=== PATIENT | female | born 1965 | race Caucasian/White ===

== ENCOUNTER 2017-11-11 06:47 | Emergency (ER) | payer OTHER ==
[2017-11-11 07:02] VITALS: RESP 16
--- NOTE | 2017-11-11 07:20 | ED PDOC ---
Arrival/HPI - General Chief Complaint: Cough, Cold, Congestion Time Seen by Provider: 11/11/17 07:16 Historian: Patient, Spouse, Caption Writer (spouse) EM Caveat: Language Barrier - History of Present Illness Narrative History of Present Illness (Text): 11/11/17 07:17 pt p/w + coughing, productive x 1 week, now productive with persistent coughing and nausea with occasional vomiting; pt + decr appetite, + tactile fever last night; no chills/sweats, no cp, mild sob, no palpitations, no abd pain, no numbness/tingling, no urinary/bowel changes, ? sick contact, no fall/travel/ trauma; pt is here for further eval. pt's without other complaints. PCP: JENNIFER pt lives with spouse, whos translating for the patient Time/Duration: 1 week Symptom Onset: Gradual Symptom Course: Unchanged Severity Level: Moderate Activities at Onset: Rest Context: Home Past Medical History - Provider Review Nursing Documentation Reviewed: Yes - Travel History Have you recently traveled outside [place] w/in the past 3 mons?: No - Past History Past History: No Previous - Infectious Disease Hx of Infectious Diseases: None - Tetanus Immunization Tetanus Immunization: Unknown - Reproductive Menopause: Yes Currently : No - Cardiac Hx Cardiac Disorders: Yes Hx Hypertension: Yes - Pulmonary Hx Respiratory Disorders: No - Neurological Hx Neurological Disorder: No - HEENT Hx HEENT Disorder: No - Renal Hx Renal Disorder: No - Endocrine/Metabolic Hx Endocrine Disorders: No - Hematological/Oncological Hx Blood Disorders: No - Integumentary Hx Dermatological Disorder: No - Musculoskeletal/Rheumatological Hx Musculoskeletal Disorders: No - Gastrointestinal Hx Gastrointestinal Disorders: No - Genitourinary/Gynecological Hx Genitourinary Disorders: No - Psychiatric Hx Psychophysiologic Disorder: No Hx Substance Use: No - Surgical History Hx Appendectomy: Yes Family/Social History - Physician Review Nursing Documentation Reviewed: Yes Family/Social History: No Known Family HX Smoking Status: Never Smoked Hx Alcohol Use: Yes Frequency of alcohol use: Socially Hx Substance Use: No Allergies/Home Meds Allergies/Adverse Reactions: Allergies No Known Allergies Allergy (Verified 11/11/17 07:17) Review of Systems - Review of Systems Constitutional: Fatigue Eyes: Normal ENT: Normal Respiratory: SOB, Cough, Sputum. absent: Wheezing Cardiovascular: Normal Gastrointestinal: Nausea, Vomiting Genitourinary Female: Normal Musculoskeletal: Normal Skin: Normal Neurological: Normal Endocrine: Normal Hemo/Lymphatic: Normal Psychiatric: Normal Physical Exam Vital Signs Reviewed: Yes Vital Signs Temp Pulse Resp BP Pulse Ox 11/11/17 10:23 98.8 F 84 143/79 98 11/11/17 06:59 99.2 F 94 H 16 147/92 H 99 Temperature: Afebrile Blood Pressure: Hypertensive Pulse: Regular Respiratory Rate: Normal Appearance: Positive for: Well-Appearing, Uncomfortable, Other (uncomfortable, resting in bed, alert/awake, GCS = 15, oriented x 3, + active coughing is noted , NAD, cooperative) Pain Distress: None Mental Status: Positive for: Alert and Oriented X 3 - Systems Exam Head: Present: Atraumatic, Normocephalic Pupils: Present: PERRL, Other (no nystagmus, no photophobia, sclera anicteric, visual field intact b/l) Extroacular Muscles: Present: EOMI Conjunctiva: Present: Normal Ears: Present: Normal Mouth: Present: Moist Mucous Membranes, Normal Teeth, Other (uvula/tongue are midline, no exudate/lesions, no drooling/stridor) Pharnyx: Present: Normal Nose (External): Present: Atraumatic Nose (Internal): Present: Normal Inspection Neck: Present: Normal Range of Motion, Trachea Midline. No: Meningeal Signs, MIDLINE TENDERNESS Respiratory/Chest: Present: Clear to Auscultation, Good Air Exchange, Other ( coarse breath sounds noted bibasiliar, no tachypenia, no persistent wheezing/ rales/rhonchi, no accessory muscle use noted). No: Respiratory Distress, Accessory Muscle Use, Wheezes Cardiovascular: Present: Regular Rate and Rhythm, Normal S1, S2. No: Murmurs Abdomen: Present: Normal Bowel Sounds, Other (well nourished/obese female, no focal tenderness, no anders's sign, no mcburney's point tenderness, no masses/ rebound/guarding/rigidity) Back: Present: Normal Inspection, Other (no midline tenderness). No: CVA Tenderness, Midline Tenderness Upper Extremity: Present: Normal Inspection, Normal ROM, NORMAL PULSES, Neurovascularly Intact Lower Extremity: Present: Normal Inspection, NORMAL PULSES, Normal ROM, Capillary Refill < 2 s, Other (moving all limbs with ease, neurovasc intact b/l) Neurological: Present: GCS=15, CN II-XII Intact, Speech Normal Skin: Present: Warm, Normal Color, Other (cap refill < 1sec, no ulcerations, no petechiae; no rashes). No: Rashes Psychiatric: Present: Alert, Oriented x 3 Medical Decision Making ED Course and Treatment: 11/11/17 07:20 Impression: coughing/sob i have consider all the differential diagnosis regarding pt's chief medical complaints/clinical findings, including but are not limited to: acute bronchitis A/P: coughing/sob/bronchitis - xray - supportive care - observe/reevaluation 11/11/17 1015 after neb treatment, pt felt some improvement, pt states no sob no nausea pt tolerated po well lung re-exam: CTA b/l, no w/r/r vital signs are stable pt/spouse are made aware of pt's medical results pt is encouraged fluids pt is encouraged honey 1tsp every 8hours for cough control pt will f/u as directed pt will be discharged home Re-evaluation Time: 10:12 Reassessment Condition: Improving,but remains with symptoms - Lab Interpretations Lab Results: Lab Results 11/11/17 07:56: POC Glucose (mg/dL) 101 11/11/17 07:27: Influenza Typ A,B (EIA) Negative for flu a/b I have reviewed the lab results: Yes Interpretation: All labs normal - RAD Interpretation Narrative RAD Interpretations (Text): 11/11/17 11:45 possible b/l infiltrates Physician Impression : Abnormal Radiology Orders: 11/11/17 07:20 CHEST TWO VIEWS (PA/LAT) [RAD] Stat Dish Washer: ED Physician - Medication Orders Current Medication Orders: Discontinued Medications Albuterol/Ipratropium (Duoneb 3 Mg/0.5 Mg (3 Ml) Ud) 3 ml IH STAT STA Stop: 11/11/17 07:22 Last Admin: 11/11/17 07:31 Dose: 3 ml Guaifenesin/Dextromethorphan (Robitussin Dm) 10 ml PO ONCE ONE Stop: 11/11/17 07:22 Last Admin: 11/11/17 07:31 Dose: 10 ml Disposition/Present on Arrival - Present on Arrival Any Indicators Present on Arrival: No History of DVT/PE: No History of Uncontrolled Diabetes: No Urinary Catheter: No History of Decub. Ulcer: No History Surgical Site Infection Following: None - Disposition Have Diagnosis and Disposition been Completed?: Yes Diagnosis: Acute bronchitis, Bronchospasm, Coughing Disposition: HOME/ ROUTINE Disposition Time: 10:14 Patient Plan: Discharge Condition: STABLE Discharge Instructions (ExitCare): Cough in Adults, Wheezing, Acute Bronchitis Print Language: FAROESE Additional Instructions: Make sure to see your doctor in 1-2 days DRINK PLENTY OF FLUIDS take your medications as prescribed TRY one teaspoon of honey very 8 hours for cough control RETURN TO ED IF worse pain, cant breath, persistent vomiting, high fever >101- 102 for hours, altered behavior, slurr speech, facial changes, focal weakness ( arm/leg or both), unable to urinate, heavy/persistent bleeding, passing out, chest pain, or other medical emergencies Prescriptions: Albuterol HFA [Ventolin HFA 90 mcg/actuation (8 g)] 1 puff IH QID PRN #1 inhaler PRN Reason: short of breath Azithromycin [Zithromax] 250 mg PO DAILY #6 tab guaiFENesin/Dextromethorphan [guaiFENesin-DM] 10 ml PO QID PRN #100 ml PRN Reason: Cough Ibuprofen [Motrin] 600 mg PO QID PRN #30 tab PRN Reason: Pain, Mild (1-3) Referrals: [facility] [Outside] - Follow up with primary [facility] [place] - Follow up with primary Forms: [employer] (Malay)
[2017-11-11] MEDS ORDERED: guaiFENesin DM 200 mg-20 mg/10 ml UD PO ONE (07:21)
[2017-11-11] MEDS ORDERED: Albuterol-Ipratrop 3 mg / 0.5 (3 ml) UD IH STA (07:21)
[2017-11-11 10:29] VITALS: BP 143/79; PULSE 84; TEMP 98.8; O2SAT 98
--- NOTE | 2017-11-11 12:11 | RAD ---
HISTORY: Coughing and shortness of breath COMPARISON: No prior TECHNIQUE: Chest PA and lateral FINDINGS: LUNGS: Poor inspiration with low lung volumes, crowded bronchovascular markings and mild bibasilar atelectasis. PLEURA: No significant pleural effusion identified. No pneumothorax apparent. CARDIOVASCULAR: Normal. OSSEOUS STRUCTURES: Mild multilevel degenerative spondylosis of the thoracic spine. Tiny calcifications within the soft tissues adjacent to both greater tuberosities of the humeri likely representing sequela of calcific tendinitis VISUALIZED UPPER ABDOMEN: Clips right upper quadrant of the abdomen consistent prior cholecystectomy. OTHER FINDINGS: None. IMPRESSION: Poor inspiration with low lung volumes, crowded bronchovascular markings and mild bibasilar atelectasis.
== END 2017-11-11 10:31 | disposition home or self-care (01) ==
LOC: ED 06:47
DX: J20.9 Acute bronchitis, unspecified (principal); R05 Cough; I10 Essential (primary) hypertension

== ENCOUNTER 2018-09-15 08:31 | Outpatient (CLI) | payer OTHER | END 2018-09-15 08:32 | disposition home or self-care (01) | LOC: RAD 08:31 ==